=== PATIENT | female | born 1975 | race Caucasian/White ===

== ENCOUNTER 2017-12-31 11:31 | Emergency (ER) | payer MEDICAID | END 2017-12-31 14:23 | disposition left against medical advice (07) | LOC: ER 11:32 | DX: K62.89 Other specified diseases of anus and rectum (principal); Z53.21 Procedure and treatment not carried out due to patient leaving prior to being seen by health care provider ==

== ENCOUNTER 2018-05-06 02:48 | Emergency (ER) | payer MEDICAID ==
[~2018-05-06] VITALS: Ht 160 cm; Wt 77.8 kg
[2018-05-06 03:17] VITALS: BP 96/73
[2018-05-06] MEDS ORDERED: ketorolac trometh inj. 60 MG/2 ML VIAL IM ONE (03:40)
[2018-05-06] MEDS ORDERED: TETanus/Pertussis (Acell)/Diphther VAC/PF (Tdap-Adult) 0.5ml syringe IMVAC ONE (03:40)
[2018-05-06] MEDS ORDERED: CefTRIAXone 1000mg IM Kit (w/lidocaine diluent) IM ONE (03:40)
[2018-05-06] MEDS ORDERED: IBUP-1984 PO (03:54)
[2018-05-06] MEDS ORDERED: CEPH500C5 PO (03:54)
== END 2018-05-06 04:18 | disposition home or self-care (01) ==
LOC: ER 02:48
DX: L03.011 Cellulitis of right finger (principal); Z98.51 Tubal ligation status; W57.XXXA Bitten or stung by nonvenomous insect and other nonvenomous arthropods, initial encounter; Y93.89 Activity, other specified; Y92.89 Other specified places as the place of occurrence of the external cause; Y99.8 Other external cause status
CPT/HCPCS: 90471; 90715; 96372; 99284; J0696; J1885

== ENCOUNTER 2019-05-17 11:29 | Emergency (ER) | payer MEDICAID ==
[~2019-05-17] VITALS: Ht 160 cm; Wt 90.9 kg
[2019-05-17 11:39] VITALS: BP 127/80
[2019-05-17] MEDS ORDERED: SULF1TAB49 PO (11:53)
== END 2019-05-17 12:02 | disposition home or self-care (01) ==
LOC: ER 11:30
DX: L03.116 Cellulitis of left lower limb (principal); L97.829 Non-pressure chronic ulcer of other part of left lower leg with unspecified severity; R22.32 Localized swelling, mass and lump, left upper limb; Z98.51 Tubal ligation status; Z79.899 Other long term (current) drug therapy
CPT/HCPCS: 99283

== ENCOUNTER 2019-05-24 15:05 | Emergency (ER) | payer MEDICAID ==
[~2019-05-24] VITALS: Ht 160 cm; Wt 91.4 kg
[~2019-05-24 15:05] MED LIST: SULF1TAB49 PO
[2019-05-24 15:13] VITALS: BP 123/86
[2019-05-24] MEDS ORDERED: DOXY100C43 PO (15:21)
[2019-05-24] MEDS ORDERED: LIDOcaine 1% w/epiNEPHrine 1:200,000 30ml vial IM ONE (15:35)
[2019-05-24] MEDS ORDERED: LIDOcaine 1% w/EPI 1:100,000 30ml vial (MDV) SQ ONE (15:40)
[2019-05-24] MEDS ORDERED: LIDOcaine 1% W/epiNEPHrine 1:100,000 20ml vial SQ ONE (15:45)
== END 2019-05-24 16:13 | disposition home or self-care (01) ==
LOC: ER 15:06
DX: L02.414 Cutaneous abscess of left upper limb (principal); L03.114 Cellulitis of left upper limb; F12.90 Cannabis use, unspecified, uncomplicated; Z98.51 Tubal ligation status; Z79.899 Other long term (current) drug therapy
CPT/HCPCS: 10060; 99283

== ENCOUNTER 2019-11-28 05:58 | Emergency (ER) | payer MEDICAID, OTHER ==
[~2019-11-28] VITALS: Ht 160 cm; Wt 95.5 kg
[2019-11-28 05:59] VITALS: BP 109/82
[2019-11-28] MEDS ORDERED: LIDOcaine 5% patch TP SCH (06:40)
[2019-11-28] MEDS ORDERED: LIDOcaine 5% patch TP ONE (06:40)
[2019-11-28] MEDS ORDERED: NAPR-996 PO (06:42)
[2019-11-28] MEDS ORDERED: LIDO700A32 TOP (06:42)
== END 2019-11-28 07:45 | disposition home or self-care (01) ==
LOC: ER 05:58
DX: S86.811A Strain of other muscle(s) and tendon(s) at lower leg level, right leg, initial encounter (principal); F12.90 Cannabis use, unspecified, uncomplicated; Z98.51 Tubal ligation status; Z98.890 Other specified postprocedural states; Z79.899 Other long term (current) drug therapy; W01.0XXA Fall on same level from slipping, tripping and stumbling without subsequent striking against object, initial encounter; Y93.89 Activity, other specified; Y92.89 Other specified places as the place of occurrence of the external cause; Y99.8 Other external cause status
CPT/HCPCS: 99284

== ENCOUNTER 2019-12-04 14:31 | Emergency (ER) | payer MEDICAID, OTHER ==
[~2019-12-04] VITALS: Ht 160 cm; Wt 95.5 kg
[~2019-12-04 14:31] MED LIST changes: +LIDO700A32 TOP; +NAPR-996 PO; -SULF1TAB49 PO
[2019-12-04 14:55] VITALS: BP 125/86
== END 2019-12-04 16:41 | disposition home or self-care (01) ==
LOC: ER 14:32
DX: S76.911A Strain of unspecified muscles, fascia and tendons at thigh level, right thigh, initial encounter (principal); G89.29 Other chronic pain; Z98.51 Tubal ligation status; X58.XXXA Exposure to other specified factors, initial encounter; Y93.89 Activity, other specified; Y92.89 Other specified places as the place of occurrence of the external cause; Y99.8 Other external cause status
CPT/HCPCS: 99284

== ENCOUNTER 2021-09-17 10:18 | Inpatient (IN) | payer MEDICAID, OTHER ==
[~2021-09-17] VITALS: Ht 160 cm; Wt 100.9 kg
[2021-09-17] MEDS ORDERED: dexamethasone sod phosphate 10mg/ml inj IV STA (10:46)
[2021-09-17] MEDS ORDERED: normal saline 1000ML IV soln IV ONE (10:50)
[2021-09-17 11:05] LABS: BASOPHILS % (AUTO) 0.1 % (0-1); EOSINOPHILS % (AUTO) 0.1 % (0-6); HEMATOCRIT 36.7 % (35.0-45.0); HEMOGLOBIN 12.5 g/dl (12.0-16.0); LYMPHOCYTES # (AUTO) 0.7 X10'3 (1.1-4.8); LYMPHOCYTES % (AUTO) 12.6 % (21-51); MEAN CORPUSCULAR HEMOGLOBIN 29.9 PG (27.0-31.0); MEAN PLATELET VOLUME 7.6 FL (7.4-10.4); MONOCYTES # (AUTO) 0.5 X10'3 (0-0.9); MONOCYTES % (AUTO) 9.1 % (2-12); NEUTROPHILS # (AUTO) 4.3 X10'3 (1.8-7.7); NEUTROPHILS % (AUTO) 78.1 % (42-75); PLATELET COUNT 245 X10'3 (140-440); RED BLOOD COUNT 4.18 X10'6 (4.20-5.60); RED CELL DISTRIBUTION WIDTH 12.7 % (11.5-14.5); WHITE BLOOD COUNT 5.5 X10'3 (4.5-11.0)
[2021-09-17 11:32] LABS: ALANINE AMINOTRANSFERASE 58 U/L (12-78); ALBUMIN 2.6 G/DL (3.4-5.0); ALBUMIN/GLOBULIN RATIO 0.5 (1.1-1.5); ALKALINE PHOSPHATASE 76 IU/L (46-116); ANION GAP 10 (8-16); ASPARTATE AMINO TRANSFERASE 87 U/L (10-37); BILIRUBIN,TOTAL 0.3 MG/DL (0.1-1.0); BLOOD UREA NITROGEN 6 MG/DL (7-18); BUN/CREATININE RATIO 8.2 (6.6-38.0); CALCIUM 8.5 MG/DL (8.5-10.1); CHLORIDE 102 MMOL/L (99-107); CREATININE 0.73 MG/DL (0.40-0.90); GLUCOSE 112 MG/DL (70-104); SODIUM 138 MMOL/L (135-145); TOTAL CARBON DIOXIDE 25.6 MMOL/L (24-32); TOTAL PROTEIN 7.5 G/DL (6.4-8.2); eGFR 86 ML/MIN
[2021-09-17] MEDS ORDERED: NO HOME MEDS (13:55)
[2021-09-17] MEDS ORDERED: metoclopramide 5 mg/ml inj IV PRN (13:55)
[2021-09-17] MEDS ORDERED: mag hydrox/Alum hydrox/simeth 30ml oral suspension PO PRN (13:55)
[2021-09-17] MEDS ORDERED: HYDROmorphone/PF 0.2 MG/ML SYRINGE IV PRN (13:55)
[2021-09-17] MEDS ORDERED: magnesium Cl slow-release 64mg tablet PO PRN (13:55)
[2021-09-17] MEDS ORDERED: magnesium hydroxide 30ml (MOM) UD suspension PO PRN (13:55)
[2021-09-17] MEDS ORDERED: HYDROmorphone inj. 0.5 MG/0.5 ML DISP.SYRIN IV PRN (13:55)
[2021-09-17] MEDS ORDERED: acetaminophen 325mg tablet PO PRN ×2 (13:55)
[2021-09-17] MEDS ORDERED: bisacodyl 10mg suppository rectal RC PRN (13:55)
[2021-09-17] MEDS ORDERED: HYDROcodone/acetaminophen 5mg/325mg tablet PO PRN (13:55)
[2021-09-17] MEDS ORDERED: magnesium 2GM in 50ml NS 50 ML IV PRN (13:55)
[2021-09-17] MEDS ORDERED: potassium Cl 20 mEq SR tablet PO PRN (13:55)
[2021-09-17] MEDS ORDERED: potassium CL 10mEq/100ml bag 100 ML IV PRN (13:55)
[2021-09-17] MEDS ORDERED: normal saline 1000ml 1,000 ML IV SCH (13:55)
[2021-09-17] MEDS ORDERED: acetaminophen 650mg rectal suppository RC PRN (13:55)
[2021-09-17] MEDS ORDERED: ondansetron/PF 4mg/2ml inj IV PRN (13:55)
[2021-09-17] MEDS ORDERED: ALBUTEROL INHALER 1 PUFF/90 MCG INHALER IH PRN (13:55)
[2021-09-17] MEDS ORDERED: ondansetron 4mg rapidly disintigrating tab PO PRN (13:55)
[2021-09-17] MEDS ORDERED: magnesium 4gm in 100ml NS 100 ML IV PRN (13:55)
[2021-09-17] MEDS ORDERED: HYDROcodone/acetaminophen 10/325mg tab PO PRN (13:55)
[2021-09-17] MEDS: ALBUTEROL INHALER 1 PUFF/90 MCG INHALER IH SCH ×2 (14:00→21:27)
[2021-09-17] MEDS ORDERED: iohexol 350MG/ML 100ml bottle IV ONE (14:18)
[2021-09-17] MEDS: potassium Cl 20 mEq SR tablet PO PRN ×2 (14:25→19:37)
[2021-09-17 14:30] LABS: APTT 28 SECONDS (22-32); D-DIMER 0.99 MG/L FEU (0-0.50)
[2021-09-17 14:38] LABS: HEMOGLOBIN A1C 5.9 % (4.5-6.2)
[2021-09-17 14:46] LABS: C-REACTIVE PROTEIN 10.13 MG/DL (0.0-0.5); LACTATE DEHYDROGENASE 690 U/L (81-234)
[2021-09-17 15:14] VITALS: BP 123/77
[2021-09-17 15:23] LABS: CLARITY,URINE SLIGHTLY CLOUDY (Clear); COLOR,URINE YELLOW (Yellow); GLUCOSE, URINE NEGATIVE (Neg); KETONES,URINE NEGATIVE (Neg); LEUKOCYTE ESTERASE ,URINE TRACE (Neg); NITRITES, URINE NEGATIVE (Neg); OCCULT BLOOD,URINE TRACE-LYSED (Neg); PROTEIN,URINE NEGATIVE (Neg); UROBILINOGEN,URINE 0.2 E.U/dL (0.2-1.0)
[2021-09-17 15:30] LABS: URINE HCG NEGATIVE (NEG)
[2021-09-17 15:47] LABS: UA COLLECTION TYPE VOIDED
[2021-09-17 15:48] LABS: BACTERIA,URINE 1+ /HPF (Neg); RBC,URINE 0-2 /HPF (0-2); SQUAMOUS EPITHELIAL CELL,UR MANY /LPF (FEW)
[2021-09-17 15:49] LABS: TRICHOMONAS,URINE MANY /HPF (NEGATIVE); YEAST FEW /HPF (NEGATIVE)
[2021-09-17] MEDS ORDERED: K and/or MAG REPLACEMENT MC SCH (20:00)
[2021-09-17] MEDS ORDERED: dexamethasone inj 6 MG in dextrose 5%-water 50ml 50 ML IV SCH (20:00)
[2021-09-17] MEDS ORDERED: docusate sod 100mg capsule PO SCH (20:00)
[2021-09-17] MEDS ORDERED: dexamethasone inj 6 MG in normal saline 50ml IV soln 50 ML IV SCH (20:00)
[2021-09-17] MEDS ORDERED: enoxaparin 40mg/0.4ml syringe SQ SCH (20:00)
[2021-09-17] MEDS ORDERED: temazepam 15mg capsule PO PRN (21:00)
== END 2021-09-17 21:50 | disposition left against medical advice (07) | DRG 137 ==
LOC: ER 10:19 → ED HOLD 14:14
PROVIDERS: ADMIT Family Medicine; ATTEND Family Medicine
PROC: B32T1ZZ Computerized Tomography (CT Scan) of Left Pulmonary Artery using Low Osmolar Contrast (ICD-10-PCS; principal; 2021-09-17)
PROC: B3201ZZ Computerized Tomography (CT Scan) of Thoracic Aorta using Low Osmolar Contrast (ICD-10-PCS; 2021-09-17)
PROC: B32S1ZZ Computerized Tomography (CT Scan) of Right Pulmonary Artery using Low Osmolar Contrast (ICD-10-PCS; 2021-09-17)
DX: U07.1 COVID-19 (principal); J96.01 Acute respiratory failure with hypoxia; J12.82 Pneumonia due to coronavirus disease 2019; E87.6 Hypokalemia; F12.90 Cannabis use, unspecified, uncomplicated; R04.2 Hemoptysis; Z53.29 Procedure and treatment not carried out because of patient's decision for other reasons; Z98.891 History of uterine scar from previous surgery; Z98.51 Tubal ligation status
CPT/HCPCS: 36415; 71045; 71275; 80053; 81001; 81025; 83036; 83605; 83615; 83735; 84145; 84443; 85025; 85379; 85610; 85730; 86140; 87040; 94760; G0378; J1100; J1650; J3490; J7030; Q9967

== ENCOUNTER 2022-08-02 20:06 | Emergency (ER) | payer MEDICAID ==
[~2022-08-02] VITALS: Ht 160 cm; Wt 97.7 kg
[~2022-08-02 20:06] MED LIST changes: -LIDO700A32 TOP; -NAPR-996 PO; +NO HOME MEDS
[2022-08-02 20:12] VITALS: BP 169/100
[2022-08-02 20:39] LABS: BASOPHILS # (AUTO) 0.1 X10'3 (0-0.2); BASOPHILS % (AUTO) 0.6 % (0-1); EOSINOPHILS # (AUTO) 0.2 X10'3 (0-0.9); EOSINOPHILS % (AUTO) 1.4 % (0-6); HEMATOCRIT 38.5 % (35.0-45.0); HEMOGLOBIN 12.8 g/dl (12.0-16.0); LYMPHOCYTES # (AUTO) 3.2 X10'3 (1.1-4.8); MEAN CORPUSCULAR HEMOGLOBIN 29.5 PG (27.0-31.0); MEAN CORPUSCULAR HGB CONC 33.3 g/dL (33.0-36.5); MEAN CORPUSCULAR VOLUME 88.6 FL (78-98); MEAN PLATELET VOLUME 8.3 FL (7.4-10.4); MONOCYTES # (AUTO) 0.9 X10'3 (0-0.9); MONOCYTES % (AUTO) 7.4 % (2-12); NEUTROPHILS # (AUTO) 8.4 X10'3 (1.8-7.7); NEUTROPHILS % (AUTO) 65.6 % (42-75); PLATELET COUNT 316 X10'3 (140-440); RED BLOOD COUNT 4.34 X10'6 (4.20-5.60); RED CELL DISTRIBUTION WIDTH 12.8 % (11.5-14.5); WHITE BLOOD COUNT 12.8 X10'3 (4.5-11.0)
[2022-08-02 20:45] LABS: ALANINE AMINOTRANSFERASE 20 U/L (12-78); ALBUMIN 3.4 G/DL (3.4-5.0); ALBUMIN/GLOBULIN RATIO 0.8 (1.1-1.5); ALKALINE PHOSPHATASE 107 IU/L (46-116); ANION GAP 9 (8-16); ASPARTATE AMINO TRANSFERASE 19 U/L (10-37); BILIRUBIN,TOTAL 0.3 MG/DL (0.1-1.0); BLOOD UREA NITROGEN 9 MG/DL (7-18); BUN/CREATININE RATIO 10.7 (6.6-38.0); CHLORIDE 104 MMOL/L (99-107); CREATININE 0.84 MG/DL (0.40-0.90); GLUCOSE 115 MG/DL (70-104); POTASSIUM 3.2 MMOL/L (3.5-5.1); SODIUM 139 MMOL/L (135-145); TOTAL CARBON DIOXIDE 25.9 MMOL/L (24-32); TOTAL PROTEIN 7.6 G/DL (6.4-8.2); eGFR 73 ML/MIN
== END 2022-08-03 03:07 | disposition home or self-care (01) ==
LOC: ER 20:06
DX: R07.9 Chest pain, unspecified (principal); F12.10 Cannabis abuse, uncomplicated; Z79.899 Other long term (current) drug therapy; Z98.890 Other specified postprocedural states
CPT/HCPCS: 36415; 71045; 80053; 83880; 84484; 85025; 93005; 99285

== ENCOUNTER 2022-11-23 22:19 | Emergency (ER) | payer OTHER, MEDICAID ==
[~2022-11-23] VITALS: Ht 160 cm; Wt 93.2 kg
[2022-11-23] MEDS ORDERED: CYCL-1 PO (23:25)
[2022-11-23] MEDS ORDERED: IBUP-1986 PO (23:25)
[2022-11-23] MEDS ORDERED: cyclobenzaprine 10mg tablet PO ONE (23:30)
[2022-11-23] MEDS ORDERED: ketorolac trometh inj. 60 MG/2 ML VIAL IM ONE (23:30)
[2022-11-24 00:09] VITALS: BP 153/89
== END 2022-11-24 00:11 | disposition home or self-care (01) ==
LOC: ER 22:19
DX: S39.012A Strain of muscle, fascia and tendon of lower back, initial encounter (principal); M25.512 Pain in left shoulder; V98.8XXA Other specified transport accidents, initial encounter; Y93.89 Activity, other specified; Y92.89 Other specified places as the place of occurrence of the external cause; Y99.8 Other external cause status
CPT/HCPCS: 96372; 99283; J1885

== ENCOUNTER 2023-03-07 00:46 | Emergency (ER) | payer MEDICAID ==
[~2023-03-07] VITALS: Ht 160 cm; Wt 93.6 kg
[~2023-03-07 00:46] MED LIST changes: +CYCL-1 PO; +IBUP-1986 PO
[2023-03-07 00:48] VITALS: BP 147/106
[2023-03-07] MEDS ORDERED: ondansetron 4mg rapidly disintigrating tab PO ONE (02:05)
[2023-03-07] MEDS ORDERED: ketorolac trometh inj. 60 MG/2 ML VIAL IM ONE (02:05)
[2023-03-07] MEDS ORDERED: HYDROcodone/acetaminophen 5mg/325mg tablet PO ONE (02:05)
[2023-03-07] MEDS ORDERED: HYDR-3965 PO (02:28)
== END 2023-03-07 02:47 | disposition home or self-care (01) ==
LOC: ER 00:46
DX: M25.532 Pain in left wrist (principal); F12.90 Cannabis use, unspecified, uncomplicated; Z98.890 Other specified postprocedural states; Z98.51 Tubal ligation status
CPT/HCPCS: 29125; 73090; 73110; 73130; 96372; 99284; J1885

== ENCOUNTER 2023-05-05 17:26 | Emergency (ER) | payer MEDICAID ==
[~2023-05-05] VITALS: Ht 160 cm; Wt 93.6 kg
[2023-05-05 17:33] VITALS: BP 150/91; PULSE 92; RESP 16; TEMP 98.8; O2SAT 98
[2023-05-05] MEDS ORDERED: NIRM1TAB PO (20:53)
== END 2023-05-05 21:28 | disposition home or self-care (01) ==
LOC: ER 17:27
DX: U07.1 COVID-19 (principal); R51.9 Headache, unspecified; F12.90 Cannabis use, unspecified, uncomplicated; Z98.891 History of uterine scar from previous surgery; Z98.51 Tubal ligation status; Z79.899 Other long term (current) drug therapy; Z79.2 Long term (current) use of antibiotics
CPT/HCPCS: 99283

== ENCOUNTER 2023-09-21 00:56 | Emergency (ER) | payer MEDICAID ==
[~2023-09-21] VITALS: Ht 160 cm; Wt 95.5 kg
[~2023-09-21 00:56] MED LIST changes: +NIRM1TAB PO
[2023-09-21 03:34] LABS: URINE HCG NEGATIVE (NEG)
[2023-09-21 03:52] VITALS: BP 138/79; PULSE 84; RESP 18; TEMP 97.9; O2SAT 97
[2023-09-21 03:59] LABS: BILIRUBIN,URINE NEGATIVE (Neg); CLARITY,URINE SLIGHTLY CLOUDY (Clear); COLOR,URINE STRAW (Yellow); GLUCOSE, URINE NEGATIVE (Neg); KETONES,URINE NEGATIVE (Neg); LEUKOCYTE ESTERASE ,URINE TRACE (Neg); NITRITES, URINE NEGATIVE (Neg); OCCULT BLOOD,URINE LARGE (Neg); PROTEIN,URINE NEGATIVE (Neg); UROBILINOGEN,URINE 0.2 E.U/dL (0.2-1.0)
[2023-09-21 04:11] LABS: UA COLLECTION TYPE CLN CATCH MIDSTREAM
[2023-09-21 04:12] LABS: MUCUS STRANDS MODERATE /LPF (Neg); SQUAMOUS EPITHELIAL CELL,UR MANY /LPF (FEW)
[2023-09-21 04:13] LABS: BACTERIA,URINE 2+ /HPF (Neg); RBC,URINE 20-50 /HPF (0-2); WBC,URINE 0-4 /HPF (0-4)
== END 2023-09-21 09:00 | disposition left against medical advice (07) ==
LOC: ER 00:57
DX: R10.9 Unspecified abdominal pain (principal); Z53.21 Procedure and treatment not carried out due to patient leaving prior to being seen by health care provider
CPT/HCPCS: 81001; 81025; 85025; 99281

== ENCOUNTER 2024-07-09 12:17 | Emergency (ER) | payer MEDICAID, OTHER ==
[~2024-07-09] VITALS: Ht 160 cm; Wt 103.2 kg
[2024-07-09 12:19] VITALS: BP 127/80; PULSE 97; O2SAT 95
[2024-07-09 13:43] VITALS: RESP 16
[2024-07-09] MEDS: ketorolac trometh 30MG/ML vial 30 MG/ML VIAL IM ONE (13:43)
[2024-07-09] MEDS: dexamethasone sod phosphate 10mg/ml inj IM STA (13:43)
[2024-07-09 13:56] VITALS: TEMP 98.1
== END 2024-07-09 14:00 | disposition home or self-care (01) ==
LOC: ER 12:17
DX: M25.462 Effusion, left knee (principal); M25.562 Pain in left knee; F12.90 Cannabis use, unspecified, uncomplicated; Z79.1 Long term (current) use of non-steroidal anti-inflammatories (NSAID); Z79.899 Other long term (current) drug therapy; Z98.51 Tubal ligation status; Z98.890 Other specified postprocedural states
CPT/HCPCS: 73564; 96372; 99284; J1100; J1885